=== PATIENT | male | born 1995 | race African-American/Black ===

== ENCOUNTER 2019-05-07 02:28 | Emergency (ER) | payer SELFPAY ==
[~2019-05-07] VITALS: Ht 180.3 cm; Wt 70.0 kg
[2019-05-07] MEDS ORDERED: TETANUS, DIPHTHERIA, PERTUSSIS VAC/PF 0.5ML (>7YR OLD) IM ONE (02:30)
[2019-05-07] MEDS ORDERED: CEFAZOLIN 1000MG PREMIX 50 ML IV ONE (02:30)
[2019-05-07] MEDS ORDERED: SODIUM CHLORIDE 0.9% 1,000 ML IV ONE (02:30)
[2019-05-07] MEDS ORDERED: ONDANSETRON HCL 4MG/2ML INJ IV STA (02:30)
[2019-05-07] MEDS ORDERED: MORPHINE SULFATE 4 MG/ML CPJ (NOT FOR IM USE) IV STA (02:30)
[2019-05-07] MEDS ORDERED: MORPHINE SULFATE 10 MG/ML CPJ IV ONE (02:35)
[2019-05-07 03:03] LABS: HEMATOCRIT. 42.4 % (42.0-52.0); HEMOGLOBIN. 13.9 g/dL (14.0-18.0); MEAN CORPUSCULAR HEMOGLOBIN 23.5 pg (28.0-32.0); MEAN CORPUSCULAR VOLUME 71.5 fL (80.0-94.0); MEAN PLATELET VOLUME 8.1 fl (7.4-10.4); PLATELET 231 x1000/uL (130-400); RED BLOOD CELL COUNT 5.93 mill/uL (4.7-6.1); RED CELL DISTRIBUTION WIDTH 15.3 % (11.6-14.6)
[2019-05-07 03:09] LABS: CHLORIDE 108 mEq/L (98-107)
[2019-05-07 03:16] VITALS: BP 153/93
[2019-05-07 06:57] LABS: PLATELET ESTIMATE NORMAL
== END 2019-05-07 03:39 | disposition short-term general hospital (02) ==
LOC: EDUNIT# 02:28 → ER 02:28
DX: S06.6X9A Traumatic subarachnoid hemorrhage with loss of consciousness of unspecified duration, initial encounter (principal); S61.205A Unspecified open wound of left ring finger without damage to nail, initial encounter; S01.80XA Unspecified open wound of other part of head, initial encounter; J45.909 Unspecified asthma, uncomplicated; F12.10 Cannabis abuse, uncomplicated; F17.200 Nicotine dependence, unspecified, uncomplicated; W34.09XA Accidental discharge from other specified firearms, initial encounter; Y93.89 Activity, other specified; Y92.89 Other specified places as the place of occurrence of the external cause; Y99.8 Other external cause status
CPT/HCPCS: 36415; 70450; 71045; 80048; 85025; 90471; 90715; 96365; 96375; 99291; J0690; J2270; J2405; J7030; Z7610